=== PATIENT | female | born 1975 | race Caucasian/White ===

== ENCOUNTER 2018-09-04 15:10 | Emergency (ER) | payer OTHER ==
[2018-09-04 15:23] VITALS: O2SAT 97
--- NOTE | 2018-09-04 15:44 | ERPHSYRPT ---
- History of Present Illness Time Seen by Provider: 09/04/18 15:37 Source: patient Exam Limitations: no limitations Patient Subjective Stated Complaint: Fell down stairs outside of her home and tried to catch her fall with her left arm and now left wrist is swollen and painful Triage Nursing Assessment: Pt states that she fell down her stairs outside of her home and tried to catch her self with her left arm and has injured her left wrist, wrist is swollen, pulses good, capillary refill good, rates pain 7/10 Physician History: Pt states, she tripped and fell at home on steps, landed on her left hand, developed pain and swelling in her wrist, denies other injury or complaints. Occurred: just prior to arrival Method of Injury: fell Quality: constant Severity of Pain-Max: moderate Severity of Pain-Current: moderate Extremities Pain Location: wrist: left (pain, swelling) Modifying Factors: Improves With: immobilization, movement Associated Symptoms: none Allergies/Adverse Reactions: Sulfa (Sulfonamide Antibiotics) [Sulfa(Sulfonamide Antibiotics)] Allergy (Mild, Verified 02/29/16 14:48) Swelling cephalexin monohydrate [From Keflex] Allergy (Verified 02/29/16 14:48) Rash Home Medications: Aripiprazole [Abilify Maintena] 400 mg IM UD 09/04/18 [History] Aspirin EC 81 mg [Ecotrin 81 mg] 81 mg PO DAILY 09/04/18 [History] Atorvastatin Calcium [Lipitor 20MG Tablet] 20 mg PO DAILY 09/04/18 [History] Escitalopram Oxalate 10 mg [Lexapro 10 MG] 10 mg PO DAILY 09/04/18 [History] Fexofenadine HCl [Jeanette] 60 mg PO DAILY 09/04/18 [History] Metoprolol Succinate 50 mg [Toprol Xl 50 MG] 50 mg PO DAILY 09/04/18 [ History] Hx Tetanus, Diphtheria Vaccination/Date Given: Yes Hx Influenza Vaccination/Date Given: Yes (2014) Hx Pneumococcal Vaccination/Date Given: (unknown) - Review of Systems Constitutional: No Symptoms Eyes: No Symptoms Ears, Nose, & Throat: No Symptoms Respiratory: No Symptoms Cardiac: No Symptoms Abdominal/Gastrointestinal: No Symptoms Musculoskeletal: Other (left wrist pain and swelling) Skin: No Symptoms Neurological: No Symptoms All Other Systems: Reviewed and Negative - Past Medical History Pertinent Past Medical History: Yes Neurological History: No Pertinent History ENT History: No Pertinent History Cardiac History: Congestive Heart Failure, High Cholesterol, Hypertension Respiratory History: Asthma, CHF Endocrine Medical History: No Pertinent History Musculoskeletal History: Degenerative Disk Disease, Other GI Medical History: No Pertinent History History: No Pertinent History Psycho-Social History: Anxiety, Depression Female Reproductive Disorders: No Pertinent History Other Medical History: high calcium, hepatitis C - Past Surgical History Past Surgical History: Yes Neuro Surgical History: No Pertinent History Cardiac: No Pertinent History Respiratory: No Pertinent History Gastrointestinal: No Pertinent History Genitourinary: No Pertinent History Musculoskeletal: Orthopedic Surgery Female Surgical History: Section Other Surgical History: right knee x2, wrist wrist x2, left wrist, left shoulder , - Social History Smoking Status: Current every day smoker How long have you smoked: 20 years Exposure to second hand smoke: Yes Alcohol Use: Socially Drug Use: marijuana, methamphetamines Patient Lives Alone: No Significant Family History: no pertinent family hx - Female History Hx Now: No (tubal) - Nursing Vital Signs Nursing Vital Signs: Initial Vital Signs Temperature 98.3 F 09/04/18 15:15 Pulse Rate 121 H 09/04/18 15:15 Respiratory Rate 14 09/04/18 15:15 Blood Pressure 133/89 09/04/18 15:15 O2 Sat by Pulse Oximetry 97 09/04/18 15:15 Pain Scale Pain Intensity 8 - Physical Exam General Appearance: no apparent distress Eyes, Ears, Nose, Throat Exam: normal ENT inspection Neck Exam: normal inspection, non-tender Cardiovascular/Respiratory Exam: chest non-tender, normal breath sounds, regular rate/rhythm, heart sounds normal, no ecchymosis Abdominal Exam: non-tender, soft Back Exam: normal inspection, No CVA tenderness, No vertebral tenderness Elbow/Forearm Exam: normal inspection, non-tender Wrist Exam: limited ROM, soft tissue tenderness, swelling (mild, dorsal swelling , no deformity, good distal circulation, and sensation, normal capillary refills.) Neuro/Tendon Exam: normal sensation, normal motor functions Mental Status Exam: alert, oriented x 3, cooperative Skin Exam: normal color, warm, dry, No rash SpO2 Interpretation: normal SpO2: 97 O2 Delivery: Room Air Procedures - Splinting Location of Splint: Left, Wrist Type of Splint: Orthoglass Short Arm Splint Splint Applied By: ED Nurse Pre-Proc Neuro Vasc Exam: normal Post-Proc Neuro Vasc Exam: neurovascular intact Progress: Pt tolerated it well. - Course Nursing assessment & vital signs reviewed: Yes - Radiology Exams Left Wrist X-ray Interpretation: Interpreted by me, Other (distal radial (Colles) and ulnar styloid fracture, radial fracture is displaced with 10 dgr dorsal tilt) Ordered Tests: Active Orders 24 hr Category Date Time Status Sling Application STAT Care 09/04/18 15:57 Active Splint STAT Care 09/04/18 15:57 Active WRIST (MIN 3 VIEWS) Stat Exams 09/04/18 15:27 Taken Medication Summary Discontinued Medications Generic Name Dose Route Start Last Admin Trade Name Freq PRN Reason Stop Dose Admin Hydrocodone Bitart/Acetaminophen 1 tab 09/04/18 15:57 09/04/18 16:09 [place] 5/325 Mg PO 09/04/18 15:58 1 tab STAT ONE Administration Hydrocodone Bitart/Acetaminophen Confirm 09/04/18 16:09 [place] 5/325 Mg Administered 09/04/18 16:10 Dose 1 tab .ROUTE .STK-MED ONE - Progress Progress: improved Progress Note: 09/04/18 16:12 Pt was educated about the X ray report, she was placed in left forearm OCL splint and sling, given [place] 5/325 mg and discharged home to follow up with [facility] in [facility] , to call on Thursday AM. She was also advised to rest with elevated arm, apply ice to swelling. Counseled pt/family regarding: diagnosis, need for follow-up (with Orthopedic surgeon in 2-3 days ), rad results - Departure Departure Disposition: Home Clinical Impression: Radius distal fracture Qualifiers: Encounter type: initial encounter Fracture type: closed Fracture morphology: Colles' Laterality: left Qualified Code(s): S52.532A - Colles' fracture of left radius, initial encounter for closed fracture Condition: Stable Critical Care Time: No Referrals: CORI DAVILA, STACKER AND SORTER OPERATOR [Primary Care Provider] - Instructions: Wrist Fracture Additional Instructions: Rest x 2-3 days with elevated arm, apply ice to swelling, and follow up with orthopedic surgeon in [facility] at [facility], [address], [facility], tel: [phone], return if severe pain, swelling, sudden discoloration, coldness of the fingers! Prescriptions: Hydrocodone/APAP 5-325 Tab^^^ [[place] 5-325 Tablet^^^] 1 tab PO Q6HPRN PRN #10 tablet MDD 6 PRN Reason: Pain
[2018-09-04] MEDS ORDERED: NORCO 5/325 MG PO ONE (15:57)
[2018-09-04 16:07] VITALS: BP 187/92; PULSE 114
[2018-09-04] MEDS ORDERED: NORCO 5/325 MG ONE (16:09)
--- NOTE | 2018-09-04 20:14 | XRAY ---
Indication: Pain following injury. Comparison: None 3 views of the left wrist demonstrates minimally displaced comminuted distal radial fracture with intra-articular extension and soft tissue swelling. Also minimally displaced ulnar styloid fracture. Mild degenerative changes base of 1st metacarpal with heterotopic ossification. Remaining wrist unremarkable.
== END 2018-09-04 16:29 | disposition home or self-care (01) ==
LOC: ED 15:10 → MERGE 15:10 → ED 16:29
DX: S52.532A Colles' fracture of left radius, initial encounter for closed fracture (principal); M25.532 Pain in left wrist; W10.8XXA Fall (on) (from) other stairs and steps, initial encounter; Y93.89 Activity, other specified; E78.00 Pure hypercholesterolemia, unspecified; I10 Essential (primary) hypertension; J45.909 Unspecified asthma, uncomplicated; I50.9 Heart failure, unspecified; Z79.899 Other long term (current) drug therapy; B19.20 Unspecified viral hepatitis C without hepatic coma
CPT/HCPCS: 29126; 73110; 99284; A9270-GY

== ENCOUNTER 2019-03-24 10:28 | Emergency (ER) | payer OTHER ==
--- NOTE | 2019-03-24 10:35 | ERPHSYRPT ---
- History of Present Illness Time Seen by Provider: 03/24/19 10:35 Source: patient, family, old records Exam Limitations: no limitations Physician History: PT IS A 43 Y/O WOMAN C/O " I CANT FIND MY TAMPON." PT STATES SHE PUT A TAMPON IN LAST NITE BUT THIS AM WAS UNABLE TO FIND THE TAMPON THIS AM. NO VAGINAL DC. NO CP/SOB/ NO N/V/FEVER/CHILLS. NO DYSURIA/HEMATURIA/ DENIES SI/AH/I OR RECENT DRUG USE. PMHX BIPOLAR, METH ABUSE, DM PSHX WRIST T&L MEDS REVIEWED ALL SULFA, KEFLEX +TOB + ETOH OCC + METH UNEMPLOYED Allergies/Adverse Reactions: Sulfa (Sulfonamide Antibiotics) [Sulfa(Sulfonamide Antibiotics)] Allergy (Mild, Verified 03/24/19 10:40) Swelling cephalexin monohydrate [From Keflex] Allergy (Verified 03/24/19 10:40) Rash Home Medications: Aripiprazole [Abilify Maintena] 400 mg IM UD 09/04/18 [History] Aspirin EC 81 mg [Ecotrin 81 mg] 81 mg PO DAILY 09/04/18 [History] Escitalopram Oxalate 10 mg [Lexapro 10 MG] 20 mg PO DAILY 09/04/18 [History] Metoprolol Succinate 50 mg [Toprol Xl 50 MG] 25 mg PO DAILY 09/04/18 [ History] Benztropine Mesylate 1 mg PO HS 03/24/19 [History] Haloperidol 2.5 mg PO DAILY 03/24/19 [History] Insulin Glargine,Hum.rec.anlog [Basaglar Kwikpen U-100] 33 unit SQ HS 03/24/19 [ History] Insulin Lispro [Humalog] 5 unit SQ PC 03/24/19 [History] LORazepam [Lorazepam] 1 mg PO UD PRN 03/24/19 [History] Levocetirizine Dihydrochloride [24Hr Allergy Relief] 5 mg PO DAILY 03/24/19 [ History] Losartan Potassium [Cozaar] 25 mg PO DAILY 03/24/19 [History] Rosuvastatin Calcium 20 mg PO HS 03/24/19 [History] Hx Tetanus, Diphtheria Vaccination/Date Given: Yes Hx Influenza Vaccination/Date Given: Yes (2014) Hx Pneumococcal Vaccination/Date Given: (unknown) - Past Medical History Pertinent Past Medical History: Yes Neurological History: No Pertinent History ENT History: No Pertinent History Cardiac History: High Cholesterol, Hypertension Respiratory History: Asthma, Bronchitis Endocrine Medical History: Diabetes Type II Musculoskeletal History: Arthritis, Fractures GI Medical History: No Pertinent History History: No Pertinent History Psycho-Social History: Depression, Anxiety Female Reproductive Disorders: No Pertinent History Other Medical History: Ganglion Cyst removal x3 (2 R and 1 L), x3, Kidney Stone removal, R knee surgery x2 - Past Surgical History Past Surgical History: Yes Neuro Surgical History: No Pertinent History Cardiac: No Pertinent History Respiratory: No Pertinent History Gastrointestinal: No Pertinent History Genitourinary: No Pertinent History Musculoskeletal: Orthopedic Surgery Female Surgical History: Section Other Surgical History: right knee x2, wrist wrist x2, left wrist, left shoulder , - Social History Smoking Status: Current every day smoker How long have you smoked: 20 years Exposure to second hand smoke: Yes Alcohol Use: Socially Drug Use: marijuana, methamphetamines Patient Lives Alone: No Significant Family History: no pertinent family hx - Nursing Vital Signs Nursing Vital Signs: Initial Vital Signs Temperature 98.2 F 03/24/19 10:33 Pulse Rate 116 H 03/24/19 10:33 Blood Pressure 118/86 03/24/19 10:33 O2 Sat by Pulse Oximetry 98 03/24/19 10:33 Pain Scale Pain Intensity 2 - Physical Exam General Appearance: no apparent distress, alert Eye Exam: PERRL/EOMI, eyes nml inspection, other (fundi normal mau), No scleral icterus, No pale conjunctivae, No photophobia, No EOM palsy/anisocoria Ears, Nose, Throat Exam: normal ENT inspection, TMs normal, pharynx normal, TM abnormal (L), other (uvula midline, floor of mouth soft), No moist mucous membranes, No dry mucous membranes, No TM abnormal (R), No pharyngeal erythema, No tonsillar exudate Neck Exam: normal inspection, non-tender, supple, full range of motion, No meningismus, No mass, No Brudzinski, No Kernig's, No carotid bruit, No JVD, No limited range of motion, No lymphadenopathy, No midline tenderness, No thyromegaly Respiratory Exam: normal breath sounds, lungs clear, airway intact, No chest tenderness, No respiratory distress, No diminished breath sounds, No accessory muscle use, No prolonged expirations, No crackles/rales, No rhonchi, No wheezing , No stridor, No pleural rub Cardiovascular Exam: regular rate/rhythm, normal heart sounds, normal peripheral pulses, capillary refill <2 sec, No murmur, No friction rub, No gallop, No tachycardia, No bradycardia, No irregular, No capillary refill 2-3 sec, No capillary refill >3 sec, No edema, No pulse deficit Gastrointestinal/Abdomen Exam: soft, normal bowel sounds, No tenderness, No distention, No mass, No guarding, No ecchymosis, No pulsatile mass, No rebound, No hernia, No hepatomegaly, No organomegaly, No splenomegaly, No bruit Pelvic Exam: normal external exam, other (NO FB APPRECIATED, OS CLOSED, SCANT BLEEDING), No adnexal tenderness, No adnexal mass, No mass, No cervical motion tenderness, No vaginal bleeding, No uterine tenderness, No vaginal discharge Rectal Exam: deferred Back Exam: normal inspection, normal range of motion, other (neg slr mau, no sacral anesthesia, dtr 2/4 mau patella), No CVA tenderness, No vertebral tenderness, No rash, No decreased range of motion, No muscle spasm, No point tenderness Extremity Exam: normal inspection, normal range of motion, pelvis stable, No amputations, No contusions, No calf tenderness, No deformities, No lacerations, No parasthesia, No paralysis, No inflammation, No joint swelling, No limited range of motion, No pedal edema, No swelling, No tenderness Neurologic Exam: alert, oriented x 3, cooperative, tuck pointer II-XII nml as tested, normal mood/affect, nml cerebellar function, nml station & gait, sensation nml, No motor deficits, No sensory deficit, No disoriented, No confusion, No agitation, No uncooperative, No intoxicated appearance, No depressed mood/affect , No motor weakness, No facial droop, No slurred speech, No aphasia, No dysarthria, No abnormal gait, No abnormal cerebellar tests, No abnormal tuck pointer II- XII, No EOM palsy Skin Exam: normal color, warm, dry, No rash, No petechiae, No jaundice, No abrasion, No cyanosis, No diaphoresis, No decubitus, No embolic lesions, No ecchymosis, No jaundice, No laceration, No mottled, No pale Lymphatic Exam: No adenopathy SpO2 Interpretation: normal O2 Delivery: Room Air - Course Nursing assessment & vital signs reviewed: Yes Ordered Tests: Active Orders 24 hr Category Date Time Status Gown/Disrobe Pt STAT Care 03/24/19 10:53 Active Pelvic Exam Assist STAT Care 03/24/19 10:53 Active PELVIS (1 OR 2 VIEWS) Stat Exams 03/24/19 11:12 Completed - Progress Progress: unchanged Progress Note: 03/24/19 11:13 EXAM NO STRING, OS CLOSED, NO FB APPRECIATED WILL CHECK PELVIS XR SINCE TAMPON IS GAS FILLED. PLAN DC WITH FUP ALL QUESTIONS ANSWERED TO PT SATISFACTION 03/24/19 12:05 ER PRELIM NO FB OR OTHER PT REASSURED ALL QUESTIONS ANSWERED TO HER SATISFACTON 03/24/19 12:06 HR 100 Counseled pt/family regarding: drug and/or alcohol abuse, lab results, diagnosis , need for follow-up, rad results, smoking cessation - Departure Departure Disposition: Home Clinical Impression: Encounter for medical screening examination Condition: Good Critical Care Time: No Referrals: JESSE BEATTY [COURTESY STAFF] - Additional Instructions: TO ER IF ABNORMAL VAGINAL BLEEDING OR DISCHARGE YOUR EXAM AND IMAGING DID NOT REVEAL A RETAINED FOREIGN BODY PLEASE FOLLOW UP WITH YOUR DOCTOR IN 2-3 DAYS FOR RE-EVALUATION AND DEFINITIVE CARE
--- NOTE | 2019-03-24 12:02 | XRAY ---
Indication: Possible retained tampon. Comparison: None Single AP pelvis nonacute and nonobstructed with a few pelvic phleboliths. No radiopaque foreign body or evidence for tampon. Osseous structures intact. Impression: Negative one view pelvis.
[2019-03-24 12:09] VITALS: BP 114/71; PULSE 89; O2SAT 97
== END 2019-03-24 12:12 | disposition home or self-care (01) ==
LOC: ED 10:28
DX: T19.2XXA Foreign body in vulva and vagina, initial encounter (principal); Z13.89 Encounter for screening for other disorder
CPT/HCPCS: 72170; 99284

== ENCOUNTER 2019-10-31 08:11 | Emergency (ER) | payer OTHER ==
[2019-10-31 08:36] VITALS: BP 120/83; PULSE 117
[2019-10-31] MEDS ORDERED: MORPHINE SULFATE 4 MG INJ IM ONE (08:36)
[2019-10-31 08:37] VITALS: O2SAT 96
[2019-10-31] MEDS ORDERED: MORPHINE SULFATE 4 MG INJ ONE (08:40)
--- NOTE | 2019-10-31 08:43 | ERPHSYRPT ---
- History of Present Illness Time Seen by Provider: 10/31/19 08:28 Source: patient Exam Limitations: no limitations Patient Subjective Stated Complaint: Boil to inner left thigh Triage Nursing Assessment: Patient ambulated back to ED and transferred self to bed. Patient A+O X3. Patient's skin pink, warm and dry. Patient complains of abscess to left inner thigh. Patient states the area started on Thursday. Patient was started on doxycycline 100mg BID on Thursday. Patient states abscess is not getting better. Abscess noted to left inner thigh with hard center and redness around. Patient states pain is 7/10. Physician History: 40 years old diabetic presented in the ER with chief complaint of left upper inner thigh swelling gradual onset since /5 days ago with progressive worsening. She was started on outpatient doxycycline and did not see any improvement. She is complaining of dull aching to throbbing/sharp pain, more with movement and palpation. She thinks it was an ingrown hair. She also has a small lump underneath it. No discharge. Denies any fever or chills. Patient does not report that it is getting worse but not getting any better since been started on antibiotics. Denies any history of MRSA. Timing/Duration: day(s) (5), gradual onset, worse Quality: painful Severity: moderate Location: extremities Possible Causes: no cause identified Associated Symptoms: edema, rash, No fever Allergies/Adverse Reactions: Sulfa (Sulfonamide Antibiotics) [Sulfa(Sulfonamide Antibiotics)] Allergy (Mild, Verified 10/31/19 08:20) Swelling cephalexin monohydrate [From Keflex] Allergy (Verified 10/31/19 08:20) Rash Home Medications: Aripiprazole [Abilifantonio Maintena] 400 mg IM UD 09/04/18 [History] Aspirin EC 81 mg [Ecotrin 81 mg] 81 mg PO DAILY 09/04/18 [History] Escitalopram Oxalate 10 mg [Lexapro 10 MG] 20 mg PO DAILY 09/04/18 [History] Metoprolol Succinate 50 mg [Toprol Xl 50 MG] 25 mg PO DAILY 09/04/18 [ History] Benztropine Mesylate 1 mg PO HS 03/24/19 [History] Insulin Glargine,Hum.rec.anlog [Basaglar Kwikpen U-100] 33 unit SQ HS 03/24/19 [ History] Insulin Lispro [Humalog] 5 unit SQ PC 03/24/19 [History] LORazepam [Lorazepam] 1 mg PO UD PRN 03/24/19 [History] Levocetirizine Dihydrochloride [24Hr Allergy Relief] 5 mg PO DAILY 03/24/19 [ History] Losartan Potassium [Cozaar] 25 mg PO DAILY 03/24/19 [History] Rosuvastatin Calcium 20 mg PO HS 03/24/19 [History] haloperidoL [Haloperidol] 2.5 mg PO DAILY 03/24/19 [History] Hx Tetanus, Diphtheria Vaccination/Date Given: Yes Hx Influenza Vaccination/Date Given: Yes (2018) Hx Pneumococcal Vaccination/Date Given: (unknown) Immunizations Up to Date: Yes Travel Risk - International Travel Have you traveled outside of the country in past 3 weeks: No Have you or anyone close to you been diagnosed with or: No Do your reside in a community with a known COVID-19 case?: Yes If Yes where:: [facility] - Coronavirus Screening Has patient experienced Coronavirus symptoms: No - Review of Systems Constitutional: No Symptoms Eyes: No Symptoms Ears, Nose, & Throat: No Symptoms Respiratory: No Symptoms Cardiac: No Symptoms Abdominal/Gastrointestinal: No Symptoms Genitourinary Symptoms: No Symptoms Skin: Cellulitis, Induration, Rash, Skin Lesions Neurological: No Symptoms Psychological: No Symptoms Endocrine: No Symptoms Hematologic/Lymphatic: No Symptoms Immunological/Allergic: No Symptoms - Past Medical History Pertinent Past Medical History: Yes Neurological History: No Pertinent History ENT History: No Pertinent History Cardiac History: High Cholesterol, Hypertension Respiratory History: Asthma, Bronchitis Endocrine Medical History: Diabetes Type II Musculoskeletal History: Arthritis, Fractures GI Medical History: No Pertinent History History: No Pertinent History Psycho-Social History: Depression, Anxiety Female Reproductive Disorders: No Pertinent History Other Medical History: Ganglion Cyst removal x3 (2 R and 1 L), x3, Kidney Stone removal, R knee surgery x2 - Past Surgical History Past Surgical History: Yes Neuro Surgical History: No Pertinent History Cardiac: No Pertinent History Respiratory: No Pertinent History Gastrointestinal: No Pertinent History Genitourinary: No Pertinent History Musculoskeletal: Orthopedic Surgery Female Surgical History: Section Other Surgical History: right knee x2, wrist wrist x2, left wrist, left shoulder , - Social History Smoking Status: Current every day smoker How long have you smoked: 20 years Exposure to second hand smoke: Yes Alcohol Use: Socially Drug Use: marijuana Patient Lives Alone: No Significant Family History: no pertinent family hx - Female History Hx Last Menstrual Period: few days Hx Now: (unkn) - Nursing Vital Signs Nursing Vital Signs: Initial Vital Signs Temperature 98.6 F 10/31/19 08:20 Pulse Rate 117 H 10/31/19 08:20 Respiratory Rate 18 10/31/19 08:20 Blood Pressure 120/83 10/31/19 08:20 O2 Sat by Pulse Oximetry 97 10/31/19 08:20 Pain Scale Pain Intensity 7 - Physical Exam General Appearance: no apparent distress, alert Eye Exam: eyes nml inspection Ears, Nose, Throat Exam: normal ENT inspection, pharynx normal Neck Exam: normal inspection, supple, full range of motion Respiratory Exam: normal breath sounds, lungs clear Cardiovascular Exam: normal heart sounds, tachycardia Gastrointestinal/Abdomen Exam: soft Back Exam: normal inspection, normal range of motion Extremity Exam: swelling (Left upper inner thigh [id number] of spreading erythema with center lump almost 3 cm, firm consistency, and. Mildly increased temperature compared to surrounding skin. Tender to touch. No fluctuation.), tenderness Neurologic Exam: alert, oriented x 3, cooperative SpO2 Interpretation: normal SpO2: 96 - Course Nursing assessment & vital signs reviewed: Yes Ordered Tests: Active Orders 24 hr Category Date Time Status LOWER EXTREMITY WO CONTRAST [CT] Stat Exams 10/31/19 08:34 Taken Medication Summary Discontinued Medications Generic Name Dose Route Start Last Admin Trade Name Jobq PRN Reason Stop Dose Admin Clindamycin Phosphate 600 mg 10/31/19 09:36 10/31/19 09:40 Cleocin Phosphate Iv 600 Mg/4 Ml IM 10/31/19 09:37 600 mg 1XONLY STA Administration Morphine Sulfate 4 mg 10/31/19 08:36 10/31/19 08:41 Morphine Sulfate 4 Mg Inj IM 10/31/19 08:37 4 mg STAT ONE Administration Morphine Sulfate Confirm 10/31/19 08:40 Morphine Sulfate 4 Mg Inj Administered 10/31/19 08:41 Dose 4 mg .ROUTE .STK-MED ONE - Progress Progress: improved Progress Note: 10/31/19 09:41 44 years old is evaluated for left upper thigh swelling and redness. I have obtained CT which did not show any drainable abscess but does have cellulitis. Patient has been taking doxycycline and per patient did not see any worsening but at the same time did not see much improvement. It is not very angry looking although she has some swelling/lump underneath which is hard. I would start her on clindamycin and have given a shot in here. She is counseled about blood sugar monitoring which is very well controlled at present. Discussed signs symptoms of worsening needing return to ER which patient seem understanding. At this point I do not think patient needs any further work-up and is stable for discharge. Counseled pt/family regarding: diagnosis, need for follow-up, rad results - Departure Departure Disposition: Home Clinical Impression: Cellulitis of left thigh Condition: Stable Critical Care Time: No Referrals: CORI DAVILA RECEIVING COORDINATOR [Primary Care Provider] - (1 to 2 days for reevaluation.) Additional Instructions: Follow-up with primary care physician for reevaluation. Return to ER for increasing redness, swelling, pain, fever or chills. Continue with antibiotics and take pain medications as needed. Prescriptions: Hydrocodone/APAP 5-325 Tab^^^ [Greene 5-325 Tablet^^^] 1 tab PO Q6HPRN PRN #10 tablet MDD 6 PRN Reason: Pain Clindamycin HCl 150 mg [Cleocin 150 mg Capsule] 2 cap PO QID #56 capsule
[2019-10-31] MEDS ORDERED: Cleocin Phosphate IV 600 MG/4 ML IM STA (09:36)
--- NOTE | 2019-10-31 19:41 | XRAY ---
Indication: Inner thigh abscess. Multiple contiguous axial images obtained through the left femur to include hip and knee joint without contrast as ordered. Two-dimensional sagittal and coronal reformatted images obtained. Cutaneous BB placed over the region of interest. Comparison: None Cutaneous BB is seen proximal thigh, medial aspect where there is underlying moderate cutaneous/subcutaneous induration favoring cellulitis. No walled off fluid collection, air bubbles, or abscess. Remaining visualized noncontrasted soft tissues are unremarkable. Visualized pelvis demonstrates multiple tiny pelvic floor calcifications, phleboliths versus distal ureteral calculi. Impression: 1. Medial thigh cellulitis. No underlying abnormal fluid/air collection. 2. Bilateral pelvic floor calcifications, phleboliths versus distal ureteral calculi. Correlate clinically. Comment: Preliminary interpretation was made by [facility]. No critical discrepancy.
== END 2019-10-31 10:00 | disposition home or self-care (01) ==
LOC: ED 08:11
DX: L03.116 Cellulitis of left lower limb (principal)
CPT/HCPCS: 73700; 96372; 99284; J2270

== ENCOUNTER 2020-06-10 11:35 | Emergency (ER) | payer OTHER ==
--- NOTE | 2020-06-10 12:21 | ERPHSYRPT ---
- History of Present Illness Time Seen by Provider: 06/10/20 11:47 Source: patient Exam Limitations: no limitations Patient Subjective Stated Complaint: PT states "I had biopsy done on thu of last week of my uterus and I am now passing clots, large clots, my belly hurts and I know I put a tampon in and now I cannot find it." Triage Nursing Assessment: Pt presented alert and oriented X 3, skin pwd Pt ambulates with an upright steady gait, able to speak in clear full sentences pt in no apparent respiratory distress. Physician History: 45 years old female with multiple medical problems including intermittent heavy lady seen by [facility]POR[facility]ET[facility] and had a uterine biopsy done 4 days ago presented in the ER with heavy vaginal bleeding since morning bright red to dark in color without any clots. She changed pads/tampon 4 times since morning. Denies any dizziness or lightheadedness. Last time patient reports she put a tampon almost 2 hours ago and then could not retrieve it outside. Patient thinks she pushed it too far. Timing/Duration: today, sudden Activites at Onset: rest Allergies/Adverse Reactions: Sulfa (Sulfonamide Antibiotics) [Sulfa(Sulfonamide Antibiotics)] Allergy (Mild, Verified 10/31/19 08:20) Swelling cephalexin monohydrate [From Keflex] Allergy (Verified 10/31/19 08:20) Rash Home Medications: Aripiprazole [Abilify Maintena] 400 mg IM UD 09/04/18 [History] Aspirin EC 81 mg [Ecotrin 81 mg] 81 mg PO DAILY 09/04/18 [History] Escitalopram Oxalate 10 mg [Lexapro 10 MG] 20 mg PO DAILY 09/04/18 [History] Metoprolol Succinate 50 mg [Toprol Xl 50 MG] 25 mg PO DAILY 09/04/18 [History] Benztropine Mesylate 1 mg PO HS 03/24/19 [History] Insulin Glargine,Hum.rec.anlog [Basaglar Kwikpen U-100] 33 unit SQ HS 03/24/19 [History] Insulin Lispro [Humalog] 5 unit SQ PC 03/24/19 [History] LORazepam [Lorazepam] 1 mg PO UD PRN 03/24/19 [History] Levocetirizine Dihydrochloride [24Hr Allergy Relief] 5 mg PO DAILY 03/24/19 [History] Losartan Potassium [Cozaar] 25 mg PO DAILY 03/24/19 [History] Rosuvastatin Calcium 20 mg PO HS 03/24/19 [History] haloperidoL [Haloperidol] 2.5 mg PO DAILY 03/24/19 [History] Hx Tetanus, Diphtheria Vaccination/Date Given: Yes Hx Influenza Vaccination/Date Given: No Hx Pneumococcal Vaccination/Date Given: No Travel Risk - International Travel Have you traveled outside of the country in past 3 weeks: No - Coronavirus Screening Are you exhibiting any of the following symptoms?: No Close contact with a COVID-19 positive Pt in past 14-21 Days: No - Review of Systems Constitutional: No Symptoms Eyes: No Symptoms Ears, Nose, & Throat: No Symptoms Respiratory: No Symptoms Cardiac: No Symptoms Abdominal/Gastrointestinal: No Symptoms Genitourinary Symptoms: Vaginal Bleeding Musculoskeletal: No Symptoms Skin: No Symptoms Neurological: No Symptoms Psychological: No Symptoms Endocrine: No Symptoms - Past Medical History Pertinent Past Medical History: Yes Neurological History: No Pertinent History ENT History: No Pertinent History Cardiac History: High Cholesterol, Hypertension Respiratory History: Asthma, Bronchitis Endocrine Medical History: Diabetes Type II Musculoskeletal History: Arthritis, Fractures GI Medical History: No Pertinent History History: No Pertinent History Psycho-Social History: Depression, Anxiety Female Reproductive Disorders: No Pertinent History Other Medical History: Ganglion Cyst removal x3 (2 R and 1 L), x3, Kidney Stone removal, R knee surgery x2 - Past Surgical History Past Surgical History: Yes Neuro Surgical History: No Pertinent History Cardiac: No Pertinent History Respiratory: No Pertinent History Gastrointestinal: No Pertinent History Genitourinary: No Pertinent History Musculoskeletal: Orthopedic Surgery Female Surgical History: Section Other Surgical History: right knee x2, wrist wrist x2, left wrist, left logan ulder, - Social History Smoking Status: Current every day smoker How long have you smoked: years Exposure to second hand smoke: Yes Alcohol Use: Socially Drug Use: marijuana Patient Lives Alone: No Significant Family History: no pertinent family hx - Female History Hx Last Menstrual Period: 06/01/2020 Hx Now: No - Nursing Vital Signs Nursing Vital Signs: Initial Vital Signs Temperature 93.2 F 06/10/20 11:45 Pulse Rate 88 06/10/20 11:45 Respiratory Rate 22 06/10/20 11:45 Blood Pressure 123/74 06/10/20 11:45 O2 Sat by Pulse Oximetry 100 06/10/20 11:45 Pain Scale Pain Intensity 6 - Physical Exam General Appearance: no apparent distress Eye Exam: eyes nml inspection Ears, Nose, Throat Exam: pharynx normal Neck Exam: normal inspection, supple, full range of motion Respiratory Exam: normal breath sounds, lungs clear Cardiovascular Exam: regular rate/rhythm, normal heart sounds Gastrointestinal/Abdomen Exam: soft, normal bowel sounds, No tenderness Pelvic Exam: normal external exam, vaginal bleeding, No mass, No cervical motion tenderness Back Exam: normal inspection, normal range of motion Extremity Exam: normal inspection, normal range of motion Neurologic Exam: alert, oriented x 3 Skin Exam: normal color SpO2 Interpretation: normal SpO2: 100 O2 Delivery: Room Air Ordered Tests: Active Orders 24 hr Category Date Time Status PELVIS TRANS VAGINAL [US] Stat Exams 06/10/20 12:09 Ordered CBC W DIFF Stat Lab 06/10/20 12:20 Completed Medication Summary Discontinued Medications Generic Name Dose Route Start Last Admin Trade Name Neal PRN Reason Stop Dose Admin Morphine Sulfate 4 mg 06/10/20 12:55 06/10/20 12:59 Morphine Sulfate 4 Mg Inj IM 06/10/20 12:56 4 mg STAT ONE Administration Morphine Sulfate Confirm 06/10/20 12:58 Morphine Sulfate 4 Mg Inj Administered 06/10/20 12:59 Dose 4 mg .ROUTE .STA[facility]Sky-MED ONE Lab/Rad Data: Laboratory Result Diagrams 06/10/20 12:20 Laboratory Results 06/10/20 Range/Units 12:20 WBC 11.7 H (4.0-10.5) K/mm3 RBC 3.10 L (4.1-5.4) M/mm3 Hgb 10.5 L (12.0-16.0) gm/dl Hct 30.5 L (35-47) % MCV 98.4 (78-100) fl MCH 33.9 H (26-32) pg MCHC 34.4 (32-36) g/dl RDW 13.3 (11.5-14.0) % Plt Count 161 (150-450) K/mm3 MPV 9.6 (7.5-11.0) fl Gran % 70.5 H (36.0-66.0) % Eos # (Auto) 0.17 (0-0.5) Absolute Lymphs (auto) 2.24 (1.0-4.6) Absolute Monos (auto) 1.02 (0.0-1.3) Lymphocytes % 19.2 L (24.0-44.0) % Monocytes % 8.7 (0.0-12.0) % Eosinophils % 1.5 (0.00-5.0) % Basophils % 0.1 (0.0-0.4) % Absolute Granulocytes 8.23 H (1.4-6.9) Basophils # 0.01 (0-0.4) - Progress Progress: improved Air Movement: good Progress Note: 06/10/20 15:29 I did not appreciate any foreign body in the vaginal canal. I have obtained ultrasound which is also negative. Patient has history of chronic heavy bleeding. Has stable H&H. I have discussed with Dr. Hodge and patient is scheduled for ablation soon. At this point I do not think patient needs any further work-up and is stable for discharge with outpatient follow-up. Discussed with Dr.: Other (Ayesha) Counseled pt/family regarding: lab results, diagnosis, need for follow-up, rad results - Departure Departure Disposition: Home Clinical Impression: Abnormal vaginal bleeding Condition: Stable Critical Care Time: No Referrals: CORI DAVILA NP [Primary Care Provider] - Follow Up with PCP/3 days TOMASZ HODGE DO [Family Provider] - Follow Up with PCP/3 days Instructions: Heavy Periods (DC) Additional Instructions: Keep yourself well-hydrated. Follow-up with primary care and [facility] for reevaluation. Return to ER for any worsening.
[2020-06-10 12:39] LABS: Absolute Neutrophil Ct (ANC) 8.23 (1.4-6.9); BASOPHIL % 0.1 % (0.0-0.4); Basophil (Absolute #) 0.01 (0-0.4); Eosinophil % 1.5 % (0.00-5.0); Eosinophil (Absolute #) 0.17 (0-0.5); Hematocrit 30.5 % (35-47); Hemoglobin 10.5 gm/dl (12.0-16.0); Lymphocyte (Absolute #) 2.24 (1.0-4.6); Lymphocytes % 19.2 % (24.0-44.0); Mean Cell Volume 98.4 fl (78-100); Mean Corpuscular Hemoglobin 33.9 pg (26-32); Mean Corpuscular Hgb Concent. 34.4 g/dl (32-36); Mean Platelet Volume 9.6 fl (7.5-11.0); Monocyte (Absolute #) 1.02 (0.0-1.3); Monocytes % 8.7 % (0.0-12.0); Neutrophil % 70.5 % (36.0-66.0); Platelet Count 161 K/mm3 (150-450); Red Cell Distribution Width 13.3 % (11.5-14.0); White Blood Count 11.7 K/mm3 (4.0-10.5)
[2020-06-10] MEDS ORDERED: MORPHINE SULFATE 4 MG INJ IM ONE (12:55)
[2020-06-10] MEDS ORDERED: MORPHINE SULFATE 4 MG INJ ONE (12:58)
[2020-06-10 13:14] VITALS: BP 128/84; PULSE 83; O2SAT 100
--- NOTE | 2020-06-10 18:49 | XRAY ---
Indication: Lost tampon. Two-dimensional transvaginal pelvic sonogram performed. Comparison: April 19, 2020. Uterus remains anteverted measuring 8.9 x 5.1 x 5.5 cm. Again 5 mm cervical nabothian cyst. No other focal solid/cystic uterine mass. Endometrial stripe measures 1 cm. No endometrial cavity mass or fluid collection. Right ovary measures 2.9 x 2.4 x 2.2 cm and the left measures 3.9 x 3.0 x 3.7 cm. Normal perfusion bilaterally. No suspicious adnexal mass or free fluid. Impression: Again incidental cervical nabothian cyst. Remaining transvaginal pelvic sonogram is negative. Comment: Preliminary report was given.
== END 2020-06-10 15:32 | disposition home or self-care (01) ==
LOC: ED 11:35
DX: N93.9 Abnormal uterine and vaginal bleeding, unspecified (principal); E11.9 Type 2 diabetes mellitus without complications; Z79.899 Other long term (current) drug therapy; Z79.4 Long term (current) use of insulin; I10 Essential (primary) hypertension; E78.00 Pure hypercholesterolemia, unspecified
CPT/HCPCS: 36415; 76830; 85025; 96372; 99284; J2270

== ENCOUNTER 2024-07-27 22:17 | Emergency (ER) | payer OTHER ==
[2024-07-28 05:41] VITALS: RESP 16; TEMP 97
--- NOTE | 2024-07-28 06:01 | ERPHSYRPT ---
- History of Present Illness Time Seen by Provider: 07/28/24 06:00 Source: patient, family Exam Limitations: no limitations Patient Subjective Stated Complaint: PT. STATES, "MY RIGHT EAR HURTS AND FEELS SWOLLEN, MY EQUALIBRIUM IS OFF, IT MAKES ME DIZZY. MY THROAT IS SORE ON THE RIGHT, IT HURTS TO SWALLOW. I HAVE HEAD CONGESTION." Triage Nursing Assessment: PT. A&OX3, SKIN P/W/D, SOME REDNESS AND SWELLING UNDER RT. EYE. RESP EVEN UNLABORED. PLEASANT AND COOPERATIVE. Physician History: This is a 49-year-old white female patient who presents with complaints of sore throat bilateral earaches worse on the right side and nasal and chest congestion. She states that these symptoms have been present intermittently for 6 months. She has not had a fever. She denies cough Severity: mild ENT Location: ear (R), throat Prearrival Treatment: no prearrival treatment Associated Symptoms: ear pain (R), ear pain (L), nasal congestion/drainage, sore throat Allergies/Adverse Reactions: Sulfa (Sulfonamide Antibiotics) [Sulfa(Sulfonamide Antibiotics)] Allergy (Mild, Verified 06/11/20 12:54) Swelling cephalexin monohydrate [From Keflex] Allergy (Verified 06/11/20 12:54) Rash Hx Tetanus, Diphtheria Vaccination/Date Given: Yes Hx Influenza Vaccination/Date Given: No Hx Pneumococcal Vaccination/Date Given: No Immunizations Up to Date: No Travel Risk - International Travel Have you traveled outside of the country in past 3 weeks: No - Emerging Infectious Disease Are you exhibiting symptoms associated with any current EIDs: No - Review of Systems Constitutional: No Symptoms Eyes: No Symptoms Ears, Nose, & Throat: Ear Pain (Bilateral. Right greater than left), Nose Congestion, Throat Pain Respiratory: No Symptoms Cardiac: No Symptoms Abdominal/Gastrointestinal: No Symptoms Genitourinary Symptoms: No Symptoms Musculoskeletal: No Symptoms Skin: No Symptoms Neurological: No Symptoms Psychological: No Symptoms Endocrine: No Symptoms Hematologic/Lymphatic: No Symptoms Immunological/Allergic: No Symptoms All Other Systems: Reviewed and Negative - Past Medical History Pertinent Past Medical History: Yes Neurological History: No Pertinent History ENT History: No Pertinent History Cardiac History: High Cholesterol, Hypertension Respiratory History: Asthma, Bronchitis Endocrine Medical History: Diabetes Type II Musculoskeletal History: Arthritis, Fractures GI Medical History: No Pertinent History History: No Pertinent History Psycho-Social History: Depression, Anxiety Female Reproductive Disorders: No Pertinent History Other Medical History: Ganglion Cyst removal x3 (2 R and 1 L), x3, Kidney Stone removal, R knee surgery x2, perineal abcess, HEP C - Past Surgical History Past Surgical History: Yes Neuro Surgical History: No Pertinent History Cardiac: No Pertinent History Respiratory: No Pertinent History Gastrointestinal: No Pertinent History Genitourinary: No Pertinent History Musculoskeletal: Orthopedic Surgery Female Surgical History: Section Other Surgical History: right knee x2, wrist wrist x2, left wrist, left shoulder, I&D to abcess in perineum Significant Family History: no pertinent family hx - Female History Hx Last Menstrual Period: 2 DAYS AGO Hx Now: No - Social History Smoking Status: Never smoker Exposure to second hand smoke: No Drug Use: none - Social Determinants of Health Will the patient participate in the screening: Yes Do you worry about a steady place to live?: Yes Do you have any problems with any of the following?: Other In the past 12 months,have you had to go without utilities?: No Transportation Issues: No Has anyone in your support network made you feel unsafe?: Yes Have you or anyone in your house had to go w/o enough food: No - Nursing Vital Signs Nursing Vital Signs: Initial Vital Signs Blood Pressure 160/97 07/28/24 05:02 O2 Sat by Pulse Oximetry 100 07/28/24 05:02 Pain Scale Pain Intensity 9 - Physical Exam General Appearance: no apparent distress, alert, anxiety Eye Exam: bilateral eye: normal inspection, PERRL, EOMI Ear Exam: bilateral ear: auricle normal, canal normal, TM normal Throat Exam: moist mucus membranes, pharynx swelling (Mild) Neck Exam: normal inspection, non-tender, supple, full range of motion Cardiovascular/Respiratory Exam: chest non-tender, normal breath sounds, regular rate/rhythm, heart sounds normal, no respiratory distress Abdominal Exam: non-tender Neurologic Exam: alert, oriented x 3, cooperative, metal miner II-XII nml as tested, nml cerebellar function, nml station & gait, sensation nml Skin Exam: normal color, warm, dry SpO2 Interpretation: normal SpO2: 100 O2 Delivery: Room Air - Course Nursing assessment & vital signs reviewed: Yes Ordered Tests: Active Orders 24 hr Category Date Time Status ACO SDOH Referral ROUTINE Cons 07/28/24 05:41 Active Medication Summary Discontinued Medications Generic Name Dose Route Start Last Admin Trade Name Neal PRN Reason Stop Dose Admin Azithromycin 500 mg 07/28/24 06:21 Azithromycin 250 Mg Tablet PO 07/28/24 06:22 STAT ONE Prednisone 20 mg 07/28/24 06:21 Prednisone 20 Mg Tablet PO 07/28/24 06:22 STAT ONE - Progress Progress: unchanged Progress Note: 07/28/24 06:27 My medical decision making and the assignment of low complexity to this patient's medical issue today is based on review of the patient's past medical history, review the patient's medication list, reviewed patient drug allergy list, history present illness and physical findings on examination. The workup does not require any radiographic or laboratory studies. Differential diagnosis includes but is not limited to sinusitis, pharyngitis, bronchitis Counseled pt/family regarding: diagnosis, need for follow-up Medical Desision Making - Diagnostic Testing Diagnostic test were ordered, analyzed, and reviewed by me: No - Risk of complications The pt has a mod risk of morbidity or mortality based on: Need for prescription drug management - Departure Departure Disposition: Home Clinical Impression: Pharyngitis Condition: Stable Critical Care Time: No Referrals: CLARA PERSAUD NP [Primary Care Provider] - Follow up/PCP as directed Additional Instructions: Drink plenty of clear liquids. Take your antibiotics and steroids as prescribed. Call your primary care provider today, 07/28/2024 to make an appointment for follow-up evaluation and to be seen in the next 5 to 7 days. Prescriptions: Prednisone 10 mg [Deltasone 10 mg] 10 mg PO TID #12 tablet Hydrocodone/Acetaminophen [Hydrocodone-Acetamn 7.5-325/15] 10 ml PO Q8H PRN #120 ml MDD 30 ml PRN Reason: Cough Azithromycin 250 mg [Zithromax 250 MG TABLET] 250 mg PO ZPACK #6 tablet
[2024-07-28] MEDS: Zithromax 250 MG TABLET PO ONE (06:43)
[2024-07-28] MEDS ORDERED: Zithromax 250 MG TABLET ONE ×2 (06:43→06:45)
[2024-07-28] MEDS ORDERED: DELTASONE 20 MG ONE (06:43)
[2024-07-28] MEDS: DELTASONE 20 MG PO ONE (06:44)
[2024-07-28 07:03] VITALS: BP 122/76; PULSE 73; O2SAT 99
== END 2024-07-28 07:05 | disposition home or self-care (01) ==
LOC: ED 22:17
DX: J02.9 Acute pharyngitis, unspecified (principal); H92.03 Otalgia, bilateral; R09.81 Nasal congestion; E78.5 Hyperlipidemia, unspecified; I10 Essential (primary) hypertension; E11.9 Type 2 diabetes mellitus without complications; Z79.52 Long term (current) use of systemic steroids; Z79.891 Long term (current) use of opiate analgesic; Z79.899 Other long term (current) drug therapy; Z59.819 Housing instability, housed unspecified; Z59.10 Inadequate housing, unspecified; Z63.9 Problem related to primary support group, unspecified
CPT/HCPCS: 99282; 99283; A9270-GY

== ENCOUNTER 2025-03-30 08:13 | Emergency (ER) | payer OTHER ==
[2025-03-30 08:33] VITALS: BP 177/112; RESP 16; TEMP 98.2; O2SAT 100
[2025-03-30 08:54] VITALS: PULSE 95
--- NOTE | 2025-03-30 08:59 | ERPHSYRPT ---
- History of Present Illness Time Seen by Provider: 03/30/25 08:20 Source: patient Exam Limitations: no limitations Patient Subjective Stated Complaint: patient states she has had a rash for the past week, states she went to [facility] a couple days ago and got a steroid; however, patient states it has not gotten better Triage Nursing Assessment: patient presents to ed via private vehicle, patient able to ambulate into ed without complication, patient alert and oriented x 4, patient has scattered white raised bumps on abdomen, both arms, back, and neck, no drainage noted to raised areas, patient complains of pruritus, denies sob/chest pain, patient states she does have a dry/hacky cough, lungs clear throughout all dukes Physician History: patient comes to the emergency room with rash going on for about 1.5 weeks. was seen at urgent care and given steroids which havent helped patient complains of itching no fever Timing/Duration: week(s) Severity: mild Location: torso, generalized Possible Causes: no cause identified Modifying Factors: Improves With: prednisone Associated Symptoms: denies symptoms Allergies/Adverse Reactions: Sulfa (Sulfonamide Antibiotics) [Sulfa(Sulfonamide Antibiotics)] Allergy (Mild, Verified 03/30/25 08:27) Swelling cephalexin monohydrate [From Keflex] Allergy (Verified 03/30/25 08:27) Rash Hx Tetanus, Diphtheria Vaccination/Date Given: Yes Hx Influenza Vaccination/Date Given: Yes Hx Pneumococcal Vaccination/Date Given: No Immunizations Up to Date: Yes Travel Risk - International Travel Have you traveled outside of the country in past 3 weeks: No - Emerging Infectious Disease Are you exhibiting symptoms associated with any current EIDs: No - Review of Systems Constitutional: No Fever, No Chills Eyes: No Symptoms Respiratory: No Cough, No Dyspnea Cardiac: No Chest Pain, No Edema, No Syncope Musculoskeletal: No Back Pain, No Neck Pain Skin: Pruritis, Rash, Skin Lesions - Past Medical History Pertinent Past Medical History: Yes Neurological History: No Pertinent History ENT History: No Pertinent History Cardiac History: High Cholesterol, Hypertension Respiratory History: Asthma, Bronchitis Endocrine Medical History: Diabetes Type II Musculoskeletal History: Arthritis, Fractures GI Medical History: No Pertinent History History: No Pertinent History Psycho-Social History: Depression, Anxiety Female Reproductive Disorders: No Pertinent History Other Medical History: Ganglion Cyst removal x3 (2 R and 1 L), x3, Kidney Stone removal, R knee surgery x2, perineal abcess, HEP C - Past Surgical History Past Surgical History: Yes Neuro Surgical History: No Pertinent History Cardiac: No Pertinent History Respiratory: No Pertinent History Gastrointestinal: No Pertinent History Genitourinary: No Pertinent History Musculoskeletal: Orthopedic Surgery Female Surgical History: Section Other Surgical History: right knee x2, wrist wrist x2, left wrist, left shoulder, I&D to abcess in perineum Significant Family History: no pertinent family hx - Female History Hx Last Menstrual Period: 03/29/25 Hx Now: No - Social History Smoking Status: Current every day smoker Exposure to second hand smoke: Yes Drug Use: none - Social Determinants of Health Will the patient participate in the screening: Yes Do you worry about a steady place to live?: Yes Do you have any problems with any of the following?: Pest (bugs,ants,or mice), Mold, Lack of heat, Other In the past 12 months,have you had to go without utilities?: Yes Transportation Issues: Yes Has anyone in your support network made you feel unsafe?: No Have you or anyone in your house had to go w/o enough food: Yes Comment: no gas, water, electric - Nursing Vital Signs Nursing Vital Signs: Initial Vital Signs Temperature 98.2 F 03/30/25 08:14 Pulse Rate 98 H 03/30/25 08:14 Respiratory Rate 16 03/30/25 08:14 Blood Pressure 177/112 03/30/25 08:14 O2 Sat by Pulse Oximetry 100 03/30/25 08:14 Pain Scale Pain Intensity 6 - Physical Exam General Appearance: no apparent distress Eye Exam: PERRL/EOMI, eyes nml inspection Ears, Nose, Throat Exam: normal ENT inspection, pharynx normal, moist mucous membranes Respiratory Exam: normal breath sounds, lungs clear, No respiratory distress Cardiovascular Exam: regular rate/rhythm, normal heart sounds Extremity Exam: normal inspection Neurologic Exam: alert, oriented x 3 Skin Exam: normal color, rash, other (maculopapular rash) SpO2 Interpretation: normal SpO2: 100 O2 Delivery: Room Air Ordered Tests: Active Orders 24 hr Category Date Time Status ACO SDOH Referral ONCE Cons 03/30/25 08:33 Active - Progress Progress Note: 03/30/25 08:57 patient has a gen maculopapular rash on her body consistent with chicken pox. patient is not immunocompromised and states that she only has itching, the patient will be prescribed hydroxyzine for the itching - Departure Departure Disposition: Home Clinical Impression: Chickenpox Qualifiers: Varicella complications: keratitis Qualified Code(s): B01.81 - Varicella keratitis Condition: Stable Critical Care Time: No Referrals: SONNY PAULINO [Primary Care Provider, INTERNAL MEDICINE] - Follow up/PCP as directed Instructions: Viral Exanthem (DC) Prescriptions: Hydroxyzine HCl 25 mg [Atarax 25 mg] 25 mg PO Q6H PRN #12 tablet PRN Reason: Itching
== END 2025-03-30 09:06 | disposition home or self-care (01) ==
LOC: ED 08:13
DX: B01 Varicella [chickenpox] (principal); I10 Essential (primary) hypertension; E11.9 Type 2 diabetes mellitus without complications; Z79.899 Other long term (current) drug therapy; Z72.0 Tobacco use; Z59.819 Housing instability, housed unspecified; Z59.19 Other inadequate housing; Z59.12 Inadequate housing utilities; Z59.82 Transportation insecurity; Z59.41 Food insecurity